=== PATIENT | male | born 1965 | race Caucasian/White ===

== ENCOUNTER 2016-12-05 17:34 | Emergency (ER) | payer MEDICAID, OTHER ==
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
[2016-12-05] MEDS ORDERED: Diltiazem 25 MG/5 ML SDV IVPUSH ONE (18:32)
[2016-12-05 18:33] LABS: CHLORIDE,CL 102 mmol/L (101-111); SODIUM,NA 138 mmol/L (135-145)
[2016-12-05] MEDS ORDERED: cloNIDine 0.1 MG Tab PO ONE (19:20)
[2016-12-05] MEDS ORDERED: Ondansetron 4 MG Tab.DIS PO ONE (19:20)
[2016-12-05] MEDS ORDERED: LORazepam 2 MG/ML Syringe IVPUSH ONE (19:56)
[2016-12-05] MEDS ORDERED: Lisinopril 10 MG Tab ONE (20:20)
[2016-12-05] MEDS ORDERED: Lisinopril 10 MG Tab PO ONE (20:20)
[2016-12-06 00:49] VITALS: BP 158/93
--- NOTE | 2016-12-09 10:51 | EKG ---
12/05/2016- TOI VERNON - EKG per my reading shows sinus rhythm with no acute ST changes. [facility] /[id number]
== END 2016-12-05 20:32 | disposition home or self-care (01) ==
LOC: DL.ED 17:34
DX: I15.9 Secondary hypertension, unspecified (principal); F41.9 Anxiety disorder, unspecified; Z79.899 Other long term (current) drug therapy; Z87.891 Personal history of nicotine dependence
CPT/HCPCS: 36415; 70450; 80053; 85025; 93005; 96374; 96375; 99284; A9270; J2060; J3490

== ENCOUNTER 2017-02-18 02:38 | Emergency (ER) | payer MEDICAID, OTHER ==
[2017-02-18 03:26] VITALS: BP 168/119
[2017-02-18] MEDS ORDERED: LORazepam 2 MG/ML Syringe IVPUSH ONE (03:51)
[2017-02-18] MEDS ORDERED: Diltiazem 25 MG/5 ML SDV IVPUSH ONE ×2 (03:51→04:49)
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
[2017-02-18 04:22] LABS: CHLORIDE,CL 101 mmol/L (101-111); SODIUM,NA 143 mmol/L (135-145)
--- NOTE | 2017-03-05 10:55 | EKG ---
02/18/2017 - TOI VERNON - EKG per my reading shows sinus rhythm with inferior Q-waves with T-wave inversion. [facility] /[id number]
== END 2017-02-18 05:24 ==
LOC: DL.ED 02:38
DX: I15.9 Secondary hypertension, unspecified (principal); F41.9 Anxiety disorder, unspecified; Z79.899 Other long term (current) drug therapy; Z87.891 Personal history of nicotine dependence
CPT/HCPCS: 36415; 80053; 80305; 81001; 82150; 82553; 83690; 84484; 85025; 93005; 93010; 96374; 96375; 96376; 99285; J2060; J3490

== ENCOUNTER 2020-05-19 22:31 | Emergency (ER) | payer MEDICAID ==
[2020-05-19] MEDS ORDERED: Acetaminophen/HYDROcodone 325-10 MG Tab PO ONE (22:32)
[2020-05-19 23:13] VITALS: BP 162/95; PULSE 85
[2020-05-19 23:42] LABS: ANION GAP 14.9 mEq/L (7-13)
[2020-05-19] MEDS ORDERED: HYDROmorphone 0.5 MG/0.5 ML Syringe IVPUSH ONE (23:48)
[2020-05-20] MEDS ORDERED: HYDROmorphone 1 MG/ML Syringe IVPUSH ONE (00:45)
--- NOTE | 2020-05-20 01:03 | CT ---
PROCEDURE INFORMATION: Exam: CT Chest Without Contrast Exam date and time: 05/19/2020 11:59 PM Age: 54 years old Clinical indication: Injury or trauma; Fall; Sprain or strain; Additional info: Fall, severe flank pain TECHNIQUE: Imaging protocol: Computed tomography of the chest without contrast. Radiation optimization: All CT scans at this facility use at least one of these dose optimization techniques: automated exposure control; mA and/or kV adjustment per patient size (includes targeted exams where dose is matched to clinical indication); or iterative reconstruction. COMPARISON: No relevant prior studies available. FINDINGS: Lungs: There is mild nonspecific patchy linear density at right lung base which could be atelectatic, or inflammatory or fibrotic. Left lung is clear Pleural space: There is no evidence of pneumothorax. No pleural effusion. Heart: The heart is not enlarged. There is mild atherosclerotic calcification of the coronary arteries. Aorta: There is no thoracic aortic aneurysm. Lymph nodes: There is no evidence of lymphadenopathy. Bones/joints: There multiple healed bilateral rib fractures. Posterior right rib fracture 8 is incompletely united. The margins of this fracture sclerotic . There is an acute appearing posterior right 11th rib fracture. No other definitive acute fractures of the ribs are seen. Mild compression deformity superior endplate T6 with a large Schmorl's node deformity. Moderate compression deformity inferior endplate T7 also with apparent Schmorl's node deformity. Soft tissues: No acute soft tissue abnormalities are identified. IMPRESSION: 1. There is an acute appearing posterior right 11th rib fracture. No visible pneumothorax. 2. There are multiple bilateral healed rib fractures. No additional convincing acute rib fracture is seen 3. There is mild nonspecific patchy linear density at right lung base which could be atelectatic, or inflammatory or fibrotic. 4. Mild compression deformities T6 and T7 age and etiology indeterminate. If there is pain or tenderness in these areas consider MR. PROCEDURE INFORMATION: Exam: CT Abdomen And Pelvis Without Contrast Exam date and time: 05/19/2020 11:59 PM Age: 54 years old Clinical indication: Injury or trauma; Fall; Sprain or strain; Additional info: Fall, severe flank pain TECHNIQUE: Imaging protocol: Computed tomography of the abdomen and pelvis without contrast. Radiation optimization: All CT scans at this facility use at least one of these dose optimization techniques: automated exposure control; mA and/or kV adjustment per patient size (includes targeted exams where dose is matched to clinical indication); or iterative reconstruction. COMPARISON: No relevant prior studies available. FINDINGS: Liver: The liver is normal. Gallbladder and bile ducts: The gallbladder is normal. There is no evidence of biliary ductal dilation. Pancreas: The pancreas is normal. Spleen: The spleen is enlarged measuring 16 cm. No focal splenic lesion seen. Adrenal glands: The adrenal glands are normal. Kidneys and ureters: Left kidney is atrophic. There is a 3 mm calculus in the mid left kidney. No hydronephrosis on either side. The ureters are normal. Stomach and bowel: There is a moderate amount of colonic content identified. Non-specific/nonobstructive intestinal gas pattern. No specific small bowel or colonic abnormality is identified. The upper GI tract is normal. There is no evidence of colitis/diverticulitis. Appendix: A normal appendix is identified. Intraperitoneal space: No free air. No free fluid. Vasculature: The vasculature demonstrates diffuse mild atherosclerotic calcification. There is no aortic aneurysm. Lymph nodes: There is no adenopathy. Urinary bladder: The bladder is normal. Reproductive: The prostate demonstrates moderate nonspecific enlargement. The seminal vesicles are normal. Bones/joints: There is mild compression of the superior endplate of T12. There is moderate compression of the superior endplate of L1. There is mild compression of the inferior endplate of L2. Otherwise moderate degenerative change throughout the lumbar spine. 13 mm sclerotic lesion left-sided body of L4. Soft tissues: No acute soft tissue abnormalities are identified. IMPRESSION: 1. Partial compression fractures involving T12, L1, L2. Age and etiology indeterminate. If there is pain or tenderness in these areas consider MR. 2. Sclerotic density in the body of L4 may reflect a bone island. A sclerotic metastatic lesion cannot be ruled out entirely. If there is a history of cancer in this patient consider bone scan. 3. No intra-abdominal or pelvic sign of trauma. 4. Splenomegaly 5. Atrophic left kidney. Left renal calculus. No hydronephrosis. 6. Other findings as described
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
[2020-05-20] MEDS ORDERED: Acetaminophen/HYDROcodone 325-10 MG Tab ONE (01:42)
== END 2020-05-20 01:58 | disposition home or self-care (01) ==
LOC: DL.ED 22:31
DX: S52.501A Unspecified fracture of the lower end of right radius, initial encounter for closed fracture (principal); S22.31XA Fracture of one rib, right side, initial encounter for closed fracture; I10 Essential (primary) hypertension; F41.9 Anxiety disorder, unspecified; W01.198A Fall on same level from slipping, tripping and stumbling with subsequent striking against other object, initial encounter
CPT/HCPCS: 29125; 36415; 71250; 73110; 74176; 80053; 80305; 81001; 85025; 96374; 96376; 99284; A9270; J1170

== ENCOUNTER 2020-06-21 09:21 | Emergency (ER) | payer MEDICAID ==
[2020-06-21] MEDS ORDERED: Ondansetron 4 MG/2 ML SDV IVPUSH ONE (09:51)
[2020-06-21] MEDS ORDERED: Acetaminophen 325 MG Tab PO ONE (09:51)
[2020-06-21 10:38] LABS: ANION GAP 11.4 mEq/L (7-13)
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
[2020-06-21] MEDS ORDERED: Iopamidol 612 MG/ML 100 ML Bottle IVPUSH ONE (11:19)
--- NOTE | 2020-06-21 12:02 | CT ---
PROCEDURE INFORMATION: Exam: CT Abdomen And Pelvis With Contrast Exam date and time: 06/21/2020 11:35 AM Age: 54 years old Clinical indication: Abdominal pain; Additional info: Rlq pain with rebound tenderness; Fever TECHNIQUE: Imaging protocol: Computed tomography of the abdomen and pelvis with intravenous contrast. Radiation optimization: All CT scans at this facility use at least one of these dose optimization techniques: automated exposure control; mA and/or kV adjustment per patient size (includes targeted exams where dose is matched to clinical indication); or iterative reconstruction. Contrast material: [id number]; Contrast volume: 75 ml; Contrast route: INTRAVENOUS (IV); COMPARISON: CT Chest Abdomen Pelvis wo Cont 05/19/2020 11:59 PM FINDINGS: Lungs: Patchy bilateral areas of ground-glass attenuation and interstitial thickening in the visualized lower lungs. Pleural space: Calcified pleural plaques posterior right lung base. Liver: Normal. No mass. Gallbladder and bile ducts: Normal. No calcified stones. No ductal dilation. Pancreas: Normal. No ductal dilation. Spleen: Splenomegaly. Adrenal glands: Normal. No mass. Kidneys and ureters: Atrophic left kidney. Stable 6 mm stone lower pole left kidney. Cortical scarring right kidney. Stomach and bowel: Large amount of stool in the right side of the colon Appendix: No evidence of appendicitis. Intraperitoneal space: Unremarkable. No free air. No significant fluid collection. Vasculature: Vascular calcifications including coronary artery calcifications. Lymph nodes: Unremarkable. No enlarged lymph nodes. Urinary bladder: Unremarkable as visualized. Reproductive: Prostatic enlargement and prostatic calcifications. Bones/joints: Chronic benign compression deformities of T7 and T12 through L2. Degenerate arthritis in the spine and pelvis. Stable focal sclerotic lesion in left side of L4 vertebral body. Stable multiple right rib fractures. Soft tissues: Unremarkable. IMPRESSION: 1. Large amount of stool in the right side of the colon. 2. Splenomegaly. 3. Atrophic left kidney with 6 mm nonobstructing left kidney stone. 4. Ground-glass infiltrates in both lung bases. Commonly reported imaging features of COVID-19 pneumonia are present. Other processes such as influenza pneumonia and organizing pneumonia, as can be seen with drug toxicity and connective tissue disease, can cause a similar imaging pattern. (Reference: Chevy) References: Chevy Stark et al., Radiological Society of [place] Expert Consensus Statement on Reporting Chest CT Findings Related to COVID-19. Endorsed by the Society of Thoracic Radiology, the [place] [employer], and RSNA. Published October 04, 2019.
[2020-06-21] MEDS ORDERED: cefTRIAXone 1 GM in Sodium Chloride 0.9% 50 ML IV ONE (12:32)
[2020-06-21 12:58] VITALS: BP 143/76; PULSE 72
== END 2020-06-21 13:41 | disposition home or self-care (01) ==
LOC: DL.ED 09:21
DX: U07.1 COVID-19 (principal); J12.89 Other viral pneumonia; K59.09 Other constipation; I12.9 Hypertensive chronic kidney disease with stage 1 through stage 4 chronic kidney disease, or unspecified chronic kidney disease; N18.9 Chronic kidney disease, unspecified; F41.9 Anxiety disorder, unspecified; Z79.899 Other long term (current) drug therapy; Z87.891 Personal history of nicotine dependence
CPT/HCPCS: 36415; 74177; 80053; 80305-QW; 80307; 81001; 82150; 83605; 83690; 85025; 87040; 96365; 96375; 99284-25; A9270-GY; J0696; J2405; J7050; Q9967

== ENCOUNTER 2020-06-22 14:44 | Inpatient (IN) | payer MEDICAID ==
[2020-06-22 16:31] LABS: ANION GAP 10.2 mEq/L (7-13); CHLORIDE,CL 99 mmol/L (98-107); SODIUM,NA 133 mmol/L (136-145)
--- NOTE | 2020-06-22 17:40 | CT ---
PROCEDURE INFORMATION: Exam: CT Chest Without Contrast; Diagnostic Exam date and time: 06/22/2020 5:17 PM Age: 54 years old Clinical indication: Shortness of breath; Additional info: Covid +, ddimer 790 TECHNIQUE: Imaging protocol: Diagnostic computed tomography of the chest without contrast. Radiation optimization: All CT scans at this facility use at least one of these dose optimization techniques: automated exposure control; mA and/or kV adjustment per patient size (includes targeted exams where dose is matched to clinical indication); or iterative reconstruction. COMPARISON: CT Chest Abdomen Pelvis wo Cont 05/19/2020 11:59 PM FINDINGS: Lungs: Extensive bilateral ground-glass and non ground-glass airspace opacities suspicious for COVID infection. Pleural space: Unremarkable. No pneumothorax. No pleural effusion. Heart: Unremarkable. No cardiomegaly. No pericardial effusion. Aorta: Unremarkable. No aortic aneurysm. Lymph nodes: Unremarkable. No enlarged lymph nodes. Bones/joints: Healed fractures of the left 2nd 3rd and 4th ribs. Healed fracture of the right 8th posterior rib. Nonunited fracture of the posterior 9th rib. Acute nondisplaced fracture of the posterior right 11th rib. Soft tissues: Splenomegaly. IMPRESSION: 1. Bilateral ground-glass consolidation suspicious for COVID-19 infection. 2. Acute fracture of the right posterior 11th rib. 3. Splenomegaly.
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
[2020-06-22] MEDS ORDERED: Ondansetron 4 MG Tab.DIS PO PRN (19:08)
[2020-06-22] MEDS ORDERED: Docusate Sodium 100 MG Cap PO PRN (19:08)
[2020-06-22] MEDS ORDERED: Sodium Chloride 0.9% 1,000 ML IV SCH (19:15)
--- NOTE | 2020-06-22 19:47 | HP ---
CHIEF COMPLAINT: Shortness of breath. HISTORY OF PRESENT ILLNESS: The patient is a 54-year-old male with past medical history of coronary artery disease, hypertension, chronic kidney disease, who was admitted through the emergency room because of increasing shortness of breath. The patient's symptoms started about 9 days ago, and he tested positive for COVID 5 days ago. He had some shortness of breath, which has increased or worsened recently. He also complained of some chest discomfort with coughing, and also complained of fever and episodes of diarrhea. The patient denies any dysuria, headache, abdominal pain, or any other associated symptoms. Because of this, he was seen in the emergency room and his oxygen saturation on room air was in the 70s which improved with 5 L of nasal cannula to 94%. A patient had a CAT scan of the chest which showed ground-glass appearance compatible with COVID pneumonia, and because of this he was then admitted for further evaluation and management. PAST MEDICAL HISTORY: As in HPI. FAMILY HISTORY: Noncontributory. HOME MEDICATIONS: Lisinopril 20 mg daily, Voltaren, hydrochlorothiazide, lorazepam 0.5 mg p.o. b.i.d., losartan 50 mg daily, Zofran and dexamethasone 6 mg p.o. daily. ALLERGIES: No known drug allergies. REVIEW OF SYSTEMS: As in HPI. The rest of the review of systems is negative. PHYSICAL EXAMINATION: General: The patient is alert and oriented, not in any acute distress. Vital Signs: Blood pressure is 111/67, pulse of 89, respiration of 29, temperature of 100.7, saturation is 89%. SHEENT: Normocephalic. There are pink palpebral conjunctivae. Sclerae anicteric. Neck: No JVD. No lymphadenopathy. Heart: Regular rate and rhythm. No gallops. No rubs. Lungs: Diminished breath sounds on both bases, but no significant crackles. No wheezing. Abdomen: Protuberant, moderately obese, soft, nontender. Bowel sounds positive. Extremities: Negative for any pedal edema. LABORATORY WORKUP: WBC is 13.2, hemoglobin is 14.3, hematocrit is 42.9, platelets 440, neutrophils 87, bands 2. D-dimer is 789. Comp panel: Sodium is 133, BUN of 25, creatinine is 1.95, glucose is 159, calcium is 8.2, total bilirubin of 1.2, AST is 46, ALT is 128, LDH is 232. Troponin is less than 0.017. C-reactive protein is 28.4. BNP is 111. ADMITTING DIAGNOSES: 1. COVID pneumonia. 2. Hypoxemia. 3. Coronary artery disease. 4. Hypertension. 5. Chronic kidney disease. 6. Anxiety. TREATMENT PLAN: The patient is going to be admitted to [facility]. He will be empirically started on IV antibiotics with Rocephin and Zithromax. We will give him dexamethasone. I have also discussed with the patient about remdesivir, and we will put him on DVT prophylaxis and the rest of the management as necessary. Patient is full code. I spoke with the patient and provided information about remdesivir treatment as being under emergency use authorization and not fully FDA approved or reviewed. I discussed potential side effects including liver abnormalities and also discussed other potential treatment options that are currently not FDA approved to treat COVID-19. The patient gives permission for remdesivir. [facility] /[id number]
[2020-06-22] MEDS ORDERED: Water For Injection, Sterile 40 ML ONE (20:34)
[2020-06-22] MEDS: Dexamethasone 4 MG/ML SDV IVPUSH SCH (21:25)
[2020-06-22] MEDS: LORazepam 0.5 MG Tab PO SCH (21:25)
[2020-06-22] MEDS: Albuterol 6.7 GM Inhaler INH SCH (21:27)
[2020-06-22] MEDS: Enoxaparin 40 MG/0.4 ML Syringe SUBCUT SCH (21:28)
[2020-06-22] MEDS: Mometasone Furoate Powder 220 MCG/Puff 14 Dose Inhaler INH SCH ×2 (21:47→21:55)
[2020-06-22] MEDS: cefTRIAXone 1 GM in Sodium Chloride 0.9% 50 ML IV SCH (22:29)
[2020-06-22] MEDS: oxyCODONE 5 MG Tab PO PRN (23:00)
[2020-06-22] MEDS: Azithromycin 500 MG in Sodium Chloride 0.9% 250 ML IV SCH (23:05)
[2020-06-23] MEDS: Mometasone Furoate Powder 220 MCG/Puff 14 Dose Inhaler INH SCH ×3 (05:50→18:53)
[2020-06-23] MEDS: oxyCODONE 5 MG Tab PO PRN ×2 (07:59→19:52)
[2020-06-23] MEDS: LORazepam 0.5 MG Tab PO SCH ×2 (08:01→20:02)
[2020-06-23] MEDS: Albuterol 6.7 GM Inhaler INH SCH ×4 (09:00→20:09)
[2020-06-23] MEDS ORDERED: Lisinopril 20 MG Tab PO SCH (09:00)
--- NOTE | 2020-06-23 10:04 | PN ---
DATE: 06/23/2020 SUBJECTIVE: The patient this morning is feeling slightly better, although the patient is still requiring 15 L of oxygen to keep his saturation above 90%, but the patient denies any worsening of shortness of breath and denies any chest pain, fever, chills, abdominal pain, nor any other complaints. LABORATORY DATA: Lab workup this morning, CBC: WBC is 13.9, hemoglobin is 14.1, hematocrit is 42.8, platelet is 501. Chem-6: Sodium is 135, BUN is 31, creatinine is 1.7. Hepatic function panel: AST is 29 (improvement), ALT of 101. LDH is 139. OBJECTIVE: Vital Signs: Blood pressure is 118/68, pulse of 67, respirations 22, temperature of 98.6, saturation is 90% on 15 L of oxygen. Heart: Regular rate and rhythm. Normal S1 and S2. No gallops. No rubs. Lungs: Diminished breath sounds bilaterally with coarse breath sounds. No wheezing. Abdomen: Moderately obese, but soft, nontender. Bowel sounds positive. Extremities: Negative for any pedal edema. No calf tenderness. PLAN: We will continue with his present management and we will discontinue the lisinopril as the patient is taking losartan 50 mg daily. I have also discussed with the patient regarding the EUA of convalescent plasma and the patient agreed with this and we will give him 2 units of fresh frozen convalescent plasma. [facility] /[id number]
[2020-06-23] MEDS: Benzonatate 100 MG Cap PO PRN (10:51)
[2020-06-23] MEDS: Losartan 50 MG Tab PO SCH (10:51)
[2020-06-23] MEDS: amLODIPine 5 MG Tab PO SCH (10:51)
[2020-06-23] MEDS: Aspirin 81 MG Tab.Chew PO SCH (13:00)
[2020-06-23] MEDS: Dexamethasone 4 MG/ML SDV IVPUSH SCH (19:42)
[2020-06-23] MEDS: cefTRIAXone 1 GM in Sodium Chloride 0.9% 50 ML IV SCH (19:46)
[2020-06-23] MEDS: Enoxaparin 40 MG/0.4 ML Syringe SUBCUT SCH (20:07)
[2020-06-23] MEDS: REMDESIVIR 100 MG in Sodium Chloride 0.9% 100 ML IV SCH (20:12)
[2020-06-23] MEDS ORDERED: LORazepam 1 MG Tab PO ONE (20:17)
[2020-06-23] MEDS: Azithromycin 500 MG in Sodium Chloride 0.9% 250 ML IV SCH (21:06)
[2020-06-23] MEDS: Sodium Chloride 0.9% 10 ML Syringe FLUSH PRN ×3 (21:07→21:11)
[2020-06-24] MEDS: Mometasone Furoate Powder 220 MCG/Puff 14 Dose Inhaler INH SCH ×3 (05:44→17:45)
[2020-06-24 06:35] LABS: ANION GAP 14.1 mEq/L (7-13)
[2020-06-24] MEDS: Aspirin 81 MG Tab.Chew PO SCH (08:44)
[2020-06-24] MEDS: Benzonatate 100 MG Cap PO PRN (08:44)
[2020-06-24] MEDS: amLODIPine 5 MG Tab PO SCH (08:44)
[2020-06-24] MEDS: LORazepam 0.5 MG Tab PO SCH (08:44)
[2020-06-24] MEDS: Losartan 50 MG Tab PO SCH (08:44)
[2020-06-24] MEDS: Albuterol 6.7 GM Inhaler INH SCH ×4 (08:46→20:46)
--- NOTE | 2020-06-24 14:09 | PN ---
DATE: 06/24/2020 SUBJECTIVE: The patient yesterday afternoon complained of some chest pain and we did an EKG. EKG did not show any acute changes and total of 2 sets of troponin was done and this came back within normal limits. The chest pain was felt to be from his anxiety. He was given some lorazepam extra dose yesterday and actually felt albeit better. This morning, the patient is still complaining of some shortness of breath and still anxious, but denies any fever, chills, and denies any more chest pain, abdominal pain, nor any other complaints. LABORATORY DATA: Lab workup this morning. CBC: WBC 18, hemoglobin is 14.8, hematocrit is 44.9, platelet is 600. Chem-6 and comp panel remarkable for anion gap of 14.1, BUN of 39, creatinine of 1.6, glucose is 207, ALT of 90, AST of 30. Total protein of 6.1, albumin is 2.4. OBJECTIVE: Vital Signs: Blood pressure is 126/70, pulse of 64, respirations of 18, temperature of 98.4, saturation is 93% on 40% flow rate of high-flow nasal cannula and FiO2 of 65. Heart: Regular rate and rhythm. No gallops. No rubs. Lungs: Has diminished breath sounds on both bases but no significant crackles. No wheezing. Breath sounds equal. Abdomen: Moderately obese, soft, nontender. Bowel sounds positive. Extremities: Negative for any pedal edema. No calf tenderness. MEDICATIONS: Reviewed. PLAN: He will be getting the convalescent plasma today. We will continue with his IV azithromycin and some IV ceftriaxone and IV dexamethasone and Remdesivir. I am going to increase his lorazepam to 1 mg b.i.d. because of his anxiety. [facility] /[id number]
[2020-06-24] MEDS: oxyCODONE 5 MG Tab PO PRN ×2 (14:20→20:44)
[2020-06-24] MEDS: Sodium Chloride 0.9% 10 ML Syringe FLUSH PRN ×5 (19:20→21:14)
[2020-06-24] MEDS: Dexamethasone 4 MG/ML SDV IVPUSH SCH (19:20)
[2020-06-24] MEDS: cefTRIAXone 1 GM in Sodium Chloride 0.9% 50 ML IV SCH (19:24)
[2020-06-24] MEDS: REMDESIVIR 100 MG in Sodium Chloride 0.9% 100 ML IV SCH (20:06)
[2020-06-24] MEDS: LORazepam 1 MG Tab PO SCH (20:44)
[2020-06-24] MEDS: Enoxaparin 40 MG/0.4 ML Syringe SUBCUT SCH (20:47)
[2020-06-24] MEDS: Azithromycin 500 MG in Sodium Chloride 0.9% 250 ML IV SCH (21:17)
[2020-06-25] MEDS: Mometasone Furoate Powder 220 MCG/Puff 14 Dose Inhaler INH SCH ×3 (05:58→18:04)
[2020-06-25] MEDS: oxyCODONE 5 MG Tab PO PRN (06:07)
[2020-06-25] MEDS: Benzonatate 100 MG Cap PO PRN ×2 (09:20→15:43)
[2020-06-25] MEDS: LORazepam 1 MG Tab PO SCH ×2 (09:21→21:25)
[2020-06-25] MEDS: Losartan 50 MG Tab PO SCH (09:21)
[2020-06-25] MEDS: amLODIPine 5 MG Tab PO SCH (09:21)
[2020-06-25] MEDS: Aspirin 81 MG Tab.Chew PO SCH (09:21)
[2020-06-25] MEDS: Albuterol 6.7 GM Inhaler INH SCH ×4 (09:22→21:23)
--- NOTE | 2020-06-25 12:40 | PN ---
DATE: 06/25/2020 SUBJECTIVE: The patient yesterday was complaining of some vivid dreams, but today he is feeling little bit better. Denies any worsening of shortness of breath. Denies any chest pain, abdominal pain, or any other significant complaints. LABORATORY DATA: Lab workup this morning; WBC is 16.2, hemoglobin is 14.3, hematocrit is 43.3, platelets 587. Comp panel: BUN is 39, creatinine is 1.64, glucose is 203, and ALT is 102. The rest of the comp panel unremarkable. OBJECTIVE: Vital Signs: Blood pressure is 134/64, pulse of 64, respirations 20, temperature of 97.6, saturation is 94% on FiO2 of 75 with 39 flow rate. Heart: Regular rate and rhythm. Normal S1 and S2. No gallops, no rubs. Lungs: Diminished breath sounds on both bases, but no crackles, no wheezing. Abdomen: Soft, nontender, bowel sounds positive. Extremities: Negative for any pedal edema. No calf tenderness. MEDICATIONS: Reviewed. PLAN: We will continue with his present management and that is continue with IV remdesivir and IV dexamethasone and IV azithromycin and ceftriaxone, and we will continue with the rest of his other medications. [facility] /[id number]
[2020-06-25] MEDS: Acetaminophen 325 MG Tab PO PRN (15:42)
[2020-06-25] MEDS: Sodium Chloride 0.9% 10 ML Syringe FLUSH PRN ×5 (19:20→21:13)
[2020-06-25] MEDS: Dexamethasone 4 MG/ML SDV IVPUSH SCH (19:20)
[2020-06-25] MEDS: cefTRIAXone 1 GM in Sodium Chloride 0.9% 50 ML IV SCH (19:23)
[2020-06-25] MEDS: REMDESIVIR 100 MG in Sodium Chloride 0.9% 100 ML IV SCH (19:57)
[2020-06-25] MEDS: Azithromycin 500 MG in Sodium Chloride 0.9% 250 ML IV SCH (21:15)
[2020-06-25] MEDS: Enoxaparin 40 MG/0.4 ML Syringe SUBCUT SCH (21:24)
[2020-06-26] MEDS: Mometasone Furoate Powder 220 MCG/Puff 14 Dose Inhaler INH SCH ×3 (05:56→17:19)
[2020-06-26] MEDS: amLODIPine 5 MG Tab PO SCH (08:51)
[2020-06-26] MEDS: LORazepam 1 MG Tab PO SCH ×2 (08:52→21:30)
[2020-06-26] MEDS: Aspirin 81 MG Tab.Chew PO SCH (08:52)
[2020-06-26] MEDS: Losartan 50 MG Tab PO SCH (08:52)
[2020-06-26] MEDS: Albuterol 6.7 GM Inhaler INH SCH ×4 (08:54→21:34)
--- NOTE | 2020-06-26 11:17 | PCM.PN ---
- General Info Date of Service: 06/26/20 Subjective Update: Patient has no new complaints today. Has been having hiccups Still has some shortness of breath - Review of Systems General: Reports: Weakness, Malaise Pulmonary: Reports: Shortness of Breath, Cough Cardiovascular: Reports: No Symptoms Gastrointestinal: Reports: No Symptoms Skin: Reports: No Symptoms - Patient Data Vitals - Most Recent: Last Vital Signs Temp 36.2 C 06/26/20 08:00 Pulse 64 06/26/20 08:00 Resp 20 06/26/20 08:00 BP 115/67 06/26/20 08:52 Pulse Ox 98 06/26/20 08:00 Weight - Most Recent: 95.254 kg I&O - Last 24 Hours: Intake & Output 06/25/20 06/26/20 06/26/20 22:59 06:59 14:59 Intake Total 450 350 470 Output Total 700 1350 Balance -250 -1000 470 Lab Results Last 24 Hours: Laboratory Results - last 24 hr 06/26/20 Range/Units 06:30 Total Bilirubin 0.3 (0.2-1.0) mg/dL Direct Bilirubin 0.2 (0.0-0.2) mg/dL Indirect Bilirubin 0.1 AST 24 (15-37) U/L ALT 103 H (16-63) U/L Alkaline Phosphatase 106 (46-116) U/L Total Protein 6.3 L (6.4-8.2) g/dL Albumin 2.3 L (3.4-5.0) g/dL Globulin 4.0 Albumin/Globulin Ratio 0.58 Kenny Results Last 24 Hours: Microbiology 06/22/20 16:02 Aerobic Blood Culture - Preliminary Blood - Arm, Right NO GROWTH AFTER 3 DAYS Anaerobic Blood Culture - Preliminary NO GROWTH AFTER 3 DAYS 06/22/20 15:59 Aerobic Blood Culture - Preliminary Blood - Arm, Left NO GROWTH AFTER 3 DAYS Anaerobic Blood Culture - Preliminary NO GROWTH AFTER 3 DAYS Med Orders - Current: Current Medications Acetaminophen (Tylenol) 650 mg PO Q4H PRN PRN Reason: Pain (Mild 1-3)/fever Last Admin: 06/25/20 15:42 Dose: 650 mg Documented by: Albuterol (Proventil Hfa) 1 - 2 gm INH QID TRISH Last Admin: 06/26/20 08:54 Dose: 2 puff Documented by: Amlodipine Besylate (Norvasc) 10 mg PO DAILY [facility] Last Admin: 06/26/20 08:51 Dose: 10 mg Documented by: Aspirin (Aspirin) 81 mg PO DAILY [facility] Last Admin: 06/26/20 08:52 Dose: 81 mg Documented by: Benzonatate (Tessalon Perles) 100 mg PO TID PRN PRN Reason: Cough Last Admin: 06/25/20 15:43 Dose: 100 mg Documented by: Dexamethasone (Decadron) 6 mg IVPUSH DAILY@1999 [facility] Stop: 07/01/20 20:01 Last Admin: 06/25/20 19:20 Dose: 6 mg Documented by: Docusate Sodium (Colace) 100 mg PO BID PRN PRN Reason: Constipation Enoxaparin Sodium (Lovenox) 40 mg SUBCUT BEDTIME [facility] Last Admin: 06/25/20 21:24 Dose: 40 mg Documented by: Ceftriaxone Sodium 1 gm/ (Sodium Chloride) 50 mls @ 100 mls/hr IV Q24H [facility] Last Infusion: 06/25/20 19:55 Dose: Infused Documented by: Azithromycin 500 mg/ Sodium (Chloride) 250 mls @ 250 mls/hr IV Q24H [facility] Last Infusion: 06/25/20 23:55 Dose: Infused Documented by: Remdesivir 100 mg/ Sodium (Chloride) 100 mls @ 100 mls/hr IV Q24H [facility] Stop: 06/26/20 20:59 Last Infusion: 06/25/20 21:14 Dose: Infused Documented by: Lorazepam (Ativan) 1 mg PO BID [facility] Last Admin: 06/26/20 08:52 Dose: 1 mg Documented by: Losartan Potassium (Cozaar) 50 mg PO DAILY [facility] Last Admin: 06/26/20 08:52 Dose: 50 mg Documented by: Mometasone Furoate (Asmanex 220 Mcg) 2 puff INH BIDRT [facility] Last Admin: 06/26/20 06:36 Dose: Not Given Documented by: Ondansetron HCl (Zofran Odt) 4 mg PO Q4H PRN PRN Reason: nausea, able to take PO Last Admin: 06/23/20 10:51 Dose: 4 mg Documented by: Oxycodone HCl (Oxycodone) 5 mg PO Q4H PRN PRN Reason: Pain (moderate 4-6) Last Admin: 06/25/20 06:07 Dose: 5 mg Documented by: Sodium Chloride (Saline Flush) 10 ml FLUSH ASDIRECTED PRN PRN Reason: IV Use Last Admin: 06/25/20 21:13 Dose: 10 ml Documented by: Discontinued Medications Sodium Chloride (Normal Saline) 1,000 mls @ 75 mls/hr IV ASDIRECTED [facility] Last Infusion: 06/23/20 10:37 Dose: 75 mls/hr Documented by: Remdesivir 200 mg/ Sodium (Chloride) 210 mls @ 210 mls/hr IV ONETIME ONE Stop: 06/22/20 20:59 Last Infusion: 06/22/20 22:28 Dose: Infused Documented by: Sterile Water (Sterile Water For Injection) Confirm Administered Dose 40 mls @ as directed .ROUTE .STK-MED ONE Stop: 06/22/20 20:35 Last Admin: 06/22/20 21:25 Dose: 210 mls/hr Documented by: Lisinopril (Prinivil) 20 mg PO DAILY [facility] Last Admin: 06/23/20 08:00 Dose: 20 mg Documented by: Lorazepam (Ativan) 0.5 mg PO BID [facility] Last Admin: 06/24/20 08:44 Dose: 0.5 mg Documented by: Lorazepam (Ativan) 1 mg PO ONETIME ONE Stop: 06/23/20 20:18 Last Admin: 06/23/20 21:02 Dose: 1 mg Documented by: - Exam Quality Assessment: Supplemental Oxygen General: Alert, Oriented, Cooperative Neck: Supple Lungs: Decreased Breath Sounds GI/Abdominal Exam: Normal Bowel Sounds, Soft, Non-Tender, No Organomegaly, No Distention, No Abnormal Bruit, No Mass, Pelvis Stable Sepsis Event Note - Evaluation Sepsis Screening Result: No Definite Risk - Focused Exam Vital Signs: Vital Signs Temp Pulse Pulse Resp BP BP BP 06/26/20 08:52 115/67 06/26/20 08:51 115/67 06/26/20 08:00 36.2 C 64 20 115/67 06/26/20 03:19 36.1 C 71 20 150/73 H 06/25/20 23:58 36.8 C 71 20 129/70 Pulse Ox 06/26/20 08:52 06/26/20 08:51 06/26/20 08:00 98 06/26/20 03:19 93 L 06/25/20 23:58 93 L - Problem List Review Problem List Initiated/Reviewed/Updated: Yes - Plan Plan:: #. Acute hypoxemic respiratory failure This is secondary to COVID-19 pneumonia #. Chronic kidney disease Serum creatinine is at 1.5 #. Coronary artery disease Status post previous coronary stent placement #. COVID-19 pneumonia Procalcitonin level is elevated. #. Hiccups Try patient on chlorpromazine for symptomatic management Plan: Continue current antibiotics Send sample for procalcitonin level Obtain basic metabolic panel Wean down oxygen as tolerated Obtain repeat complete blood count.
[2020-06-26] MEDS ORDERED: Aluminum Hydroxide/Magnesium Hydroxide/Simethicone Susp 30 ML Cup PO PRN (18:33)
[2020-06-26] MEDS: Sodium Chloride 0.9% 10 ML Syringe FLUSH PRN ×6 (20:20→23:09)
[2020-06-26] MEDS: cefTRIAXone 1 GM in Sodium Chloride 0.9% 50 ML IV SCH (20:20)
[2020-06-26] MEDS: Dexamethasone 4 MG/ML SDV IVPUSH SCH (21:17)
[2020-06-26] MEDS: REMDESIVIR 100 MG in Sodium Chloride 0.9% 100 ML IV SCH (21:25)
[2020-06-26] MEDS: Enoxaparin 40 MG/0.4 ML Syringe SUBCUT SCH (21:31)
[2020-06-26] MEDS: Azithromycin 500 MG in Sodium Chloride 0.9% 250 ML IV SCH (23:09)
[2020-06-27] MEDS: Sodium Chloride 0.9% 10 ML Syringe FLUSH PRN ×5 (00:38→22:46)
[2020-06-27] MEDS: Pantoprazole 40 MG Tab.CR PO SCH (05:09)
[2020-06-27 07:06] LABS: ANION GAP 9.2 mEq/L (7-13)
[2020-06-27] MEDS: LORazepam 1 MG Tab PO SCH ×2 (10:11→20:42)
[2020-06-27] MEDS: Mometasone Furoate Powder 220 MCG/Puff 14 Dose Inhaler INH SCH ×2 (10:11→17:30)
[2020-06-27] MEDS: Aspirin 81 MG Tab.Chew PO SCH (10:12)
[2020-06-27] MEDS: amLODIPine 5 MG Tab PO SCH (10:12)
[2020-06-27] MEDS: Albuterol 6.7 GM Inhaler INH SCH ×4 (10:17→20:48)
[2020-06-27] MEDS: Losartan 50 MG Tab PO SCH (10:17)
[2020-06-27] MEDS ORDERED: 50% Dextrose in Water 50 ML Syringe IV PRN (11:28)
[2020-06-27] MEDS ORDERED: Glucagon,Human Recombinant 1 MG Vial IM PRN (11:28)
--- NOTE | 2020-06-27 11:31 | PCM.PN ---
- General Info Date of Service: 06/27/20 Subjective Update: Patient offers no new complaint today Still has generalized weakness Appetite is better Continues to require supplemental oxygen at 5 L/min. - Review of Systems General: Reports: Weakness Pulmonary: Reports: Shortness of Breath, Cough Cardiovascular: Reports: No Symptoms Gastrointestinal: Reports: No Symptoms Musculoskeletal: Reports: No Symptoms - Patient Data Vitals - Most Recent: Last Vital Signs Temp 36.7 C 06/27/20 10:12 Pulse 70 06/27/20 10:12 Resp 18 06/27/20 10:12 BP 124/79 06/27/20 10:12 Pulse Ox 94 L 06/27/20 10:12 Weight - Most Recent: 95.254 kg I&O - Last 24 Hours: Intake & Output 06/26/20 06/27/20 06/27/20 22:59 06:59 14:59 Intake Total 692 939 Output Total 1500 2270 Balance -808 -1331 Lab Results Last 24 Hours: Laboratory Results - last 24 hr 06/27/20 06/27/20 06/27/20 Range/Units 06:35 06:35 09:42 WBC 18.1 H (5.0-10.0) 10^3/uL RBC 5.29 (4.6-6.2) 10^6/uL Hgb 15.5 (14.0-18.0) g/dL Hct 46.3 (40.0-54.0) % MCV 87.5 (80-100) fL MCH 29.3 (27.0-34.0) pg MCHC 33.5 (33.0-35.0) g/dL Plt Count 612 H (150-450) 10^3/uL Sodium 134 L (136-145) mmol/L Potassium 5.2 H 4.8 (3.5-5.1) mmol/L Chloride 101 (98-107) mmol/L Carbon Dioxide 29 (21-32) mmol/L Anion Gap 9.2 (7-13) mEq/L BUN 36 H (7-18) mg/dL Creatinine 1.64 H (0.70-1.30) mg/dL Est Cr Clr Drug Dosing 53.17 mL/min Estimated GFR (MDRD) 44 Glucose 256 H (74-99) mg/dL Calcium 8.6 (8.5-10.1) mg/dL B-Natriuretic Peptide 90 (0-100) pg/ml Kenny Results Last 24 Hours: Microbiology 06/22/20 16:02 Aerobic Blood Culture - Preliminary Blood - Arm, Right NO GROWTH AFTER 4 DAYS Anaerobic Blood Culture - Preliminary NO GROWTH AFTER 4 DAYS 06/22/20 15:59 Aerobic Blood Culture - Preliminary Blood - Arm, Left NO GROWTH AFTER 4 DAYS Anaerobic Blood Culture - Preliminary NO GROWTH AFTER 4 DAYS Med Orders - Current: Current Medications Acetaminophen (Tylenol) 650 mg PO Q4H PRN PRN Reason: Pain (Mild 1-3)/fever Last Admin: 06/25/20 15:42 Dose: 650 mg Documented by: Al Hydroxide/Mg Hydroxide (Mag-Al Plus) 30 ml PO Q4H PRN PRN Reason: Heartburn Albuterol (Proventil Hfa) 1 - 2 gm INH QID [facility] Last Admin: 06/27/20 10:17 Dose: 2 puff Documented by: Amlodipine Besylate (Norvasc) 10 mg PO DAILY [facility] Last Admin: 06/27/20 10:12 Dose: 10 mg Documented by: Aspirin (Aspirin) 81 mg PO DAILY [facility] Last Admin: 06/27/20 10:12 Dose: 81 mg Documented by: Benzonatate (Tessalon Perles) 100 mg PO TID PRN PRN Reason: Cough Last Admin: 06/25/20 15:43 Dose: 100 mg Documented by: Dexamethasone (Decadron) 6 mg IVPUSH DAILY@1999 [facility] Stop: 07/01/20 20:01 Last Admin: 06/26/20 21:17 Dose: 6 mg Documented by: Docusate Sodium (Colace) 100 mg PO BID PRN PRN Reason: Constipation Enoxaparin Sodium (Lovenox) 40 mg SUBCUT BEDTIME [facility] Last Admin: 06/26/20 21:31 Dose: 40 mg Documented by: Ceftriaxone Sodium 1 gm/ (Sodium Chloride) 50 mls @ 100 mls/hr IV Q24H [facility] Last Infusion: 06/26/20 21:11 Dose: Infused Documented by: Azithromycin 500 mg/ Sodium (Chloride) 250 mls @ 250 mls/hr IV Q24H [facility] Last Infusion: 06/27/20 00:36 Dose: Infused Documented by: Lorazepam (Ativan) 1 mg PO BID [facility] Last Admin: 12/17/20 10:11 Dose: 1 mg Documented by: Losartan Potassium (Cozaar) 50 mg PO DAILY [facility] Last Admin: 06/27/20 10:17 Dose: Not Given Documented by: Mometasone Furoate (Asmanex 220 Mcg) 2 puff INH BIDRT [facility] Last Admin: 06/27/20 10:11 Dose: 2 puff Documented by: Ondansetron HCl (Zofran Odt) 4 mg PO Q4H PRN PRN Reason: nausea, able to take PO Last Admin: 06/23/20 10:51 Dose: 4 mg Documented by: Oxycodone HCl (Oxycodone) 5 mg PO Q4H PRN PRN Reason: Pain (moderate 4-6) Last Admin: 06/25/20 06:07 Dose: 5 mg Documented by: Pantoprazole Sodium (Protonix) 40 mg PO ACBREAKFAST [facility] Last Admin: 06/27/20 05:09 Dose: 40 mg Documented by: Sodium Chloride (Saline Flush) 10 ml FLUSH ASDIRECTED PRN PRN Reason: IV Use Last Admin: 06/27/20 00:38 Dose: 10 ml Documented by: Discontinued Medications Sodium Chloride (Normal Saline) 1,000 mls @ 75 mls/hr IV ASDIRECTED [facility] Last Infusion: 06/23/20 10:37 Dose: 75 mls/hr Documented by: Remdesivir 200 mg/ Sodium (Chloride) 210 mls @ 210 mls/hr IV ONETIME ONE Stop: 06/22/20 20:59 Last Infusion: 06/22/20 22:28 Dose: Infused Documented by: Remdesivir 100 mg/ Sodium (Chloride) 100 mls @ 100 mls/hr IV Q24H [facility] Stop: 06/26/20 20:59 Last Infusion: 06/26/20 23:06 Dose: Infused Documented by: Sterile Water (Sterile Water For Injection) Confirm Administered Dose 40 mls @ as directed .ROUTE .STK-MED ONE Stop: 06/22/20 20:35 Last Admin: 06/22/20 21:25 Dose: 210 mls/hr Documented by: Lisinopril (Prinivil) 20 mg PO DAILY [facility] Last Admin: 06/23/20 08:00 Dose: 20 mg Documented by: Lorazepam (Ativan) 0.5 mg PO BID [facility] Last Admin: 06/24/20 08:44 Dose: 0.5 mg Documented by: Lorazepam (Ativan) 1 mg PO ONETIME ONE Stop: 06/23/20 20:18 Last Admin: 06/23/20 21:02 Dose: 1 mg Documented by: - Exam Quality Assessment: Supplemental Oxygen General: Alert, Oriented, Cooperative Neck: Supple Lungs: Decreased Breath Sounds Cardiovascular: Regular Rate, Regular Rhythm GI/Abdominal Exam: Normal Bowel Sounds, Non-Tender Sepsis Event Note - Evaluation Sepsis Screening Result: No Definite Risk - Focused Exam Vital Signs: Vital Signs Temp Pulse Resp BP BP Pulse Ox 06/27/20 10:12 36.7 C 70 18 124/79 124/79 94 L 06/27/20 05:30 93 L 06/27/20 05:20 35.9 C L 56 L 20 134/79 96 06/27/20 00:38 36.3 C 63 20 129/72 90 L - Problem List Review Problem List Initiated/Reviewed/Updated: Yes - My Orders Last 24 Hours: My Active Orders 06/26/20 18:33 Alum Hydrox/Mag Hydrox/Simeth [Mag-Al Plus] 30 ml PO Q4H PRN 06/27/20 06:00 Pantoprazole [ProTONIX] 40 mg PO ACBREAKFAST 06/27/20 06:35 PROCALCITONIN [REF] DAILY 06/27/20 11:28 Dextrose 50% in Water 50 ml IV ASDIRECTED PRN Glucagon,Human Recombinant [GlucaGen] 1 mg IM ASDIRECTED PRN 06/27/20 21:00 Insulin Glarg,Human.Rec.Analog [LantUS] 12 unit SUBCUT BEDTIME - Plan Plan:: #. Acute hypoxemic respiratory failure This is secondary to COVID-19 pneumonia #. Chronic kidney disease Serum creatinine is at 1.5 #. Coronary artery disease Status post previous coronary stent placement #. COVID-19 pneumonia Procalcitonin level is elevated. #. Hiccups Try patient on chlorpromazine for symptomatic management #. Hyperglycemia Patient is not a known diabetic Likely because of steroid therapy Plan: Start patient on insulin Lantus Monitor blood sugars Try to wean down oxygen as tolerated Encourage increased ambulation Patient may be able to discharge in the next 24 hours.
[2020-06-27] MEDS: Dexamethasone 4 MG/ML SDV IVPUSH SCH (20:33)
[2020-06-27] MEDS: cefTRIAXone 1 GM in Sodium Chloride 0.9% 50 ML IV SCH (20:39)
[2020-06-27] MEDS: Enoxaparin 40 MG/0.4 ML Syringe SUBCUT SCH (20:45)
[2020-06-27] MEDS ORDERED: Insulin Glarg,Human.Rec.Analog 100 Unit/ML SUBCUT SCH (21:00)
[2020-06-27] MEDS: Azithromycin 500 MG in Sodium Chloride 0.9% 250 ML IV SCH (21:30)
[2020-06-28] MEDS: Pantoprazole 40 MG Tab.CR PO SCH (05:25)
[2020-06-28] MEDS: Aspirin 81 MG Tab.Chew PO SCH (08:34)
[2020-06-28] MEDS: Mometasone Furoate Powder 220 MCG/Puff 14 Dose Inhaler INH SCH (08:34)
[2020-06-28] MEDS: amLODIPine 5 MG Tab PO SCH (08:35)
[2020-06-28 08:38] VITALS: BP 117/67
[2020-06-28] MEDS: Albuterol 6.7 GM Inhaler INH SCH ×2 (08:38→13:13)
[2020-06-28] MEDS: LORazepam 1 MG Tab PO SCH (08:38)
[2020-06-28] MEDS: Acetaminophen 325 MG Tab PO PRN (08:49)
--- NOTE | 2020-06-28 10:33 | PCM.DCSUM1 ---
Discharge Summary - Hospital Course Free Text/Narrative:: Is a 54-year-old man with medical history of coronary artery disease, hypertension, chronic kidney disease, anxiety disorder. The patient was admitted with complaint of shortness of breath and was found to have hypoxia. This is secondary to COVID-19 pneumonia. He was started on intravenous dexamethasone, remdesivir and also received 2 units of convalescent plasma. Patient was placed on antibacterial medications. He feels better he will be discharged home. Patient continues to require supplemental oxygen 2 to 4 L/min. We will make arrangements for that. #. Acute hypoxemic respiratory failure This is secondary to COVID-19 pneumonia #. Chronic kidney disease Serum creatinine is at 1.5 #. Coronary artery disease Status post previous coronary stent placement #. COVID-19 pneumonia Procalcitonin level is elevated. #. Hiccups Try patient on chlorpromazine for symptomatic management #. Hyperglycemia Patient is not a known diabetic Likely because of steroid therapy Diagnosis: Stroke: No - Discharge Data Discharge Date: 06/28/20 Discharge Disposition: Home, Self-Care 01 Condition: Good - Referral to Home Health Primary Care Physician: Elena Pinto MD - Patient Instructions Other/Special Instructions: F/up with PMD in one week - Discharge Plan *PRESCRIPTION DRUG MONITORING PROGRAM REVIEWED*: No *COPY OF PRESCRIPTION DRUG MONITORING REPORT IN PATIENT SULY: No Prescriptions/Med Rec: Azithromycin 500 mg PO DAILY 4 Days #4 tablet dexAMETHasone [Decadron] 6 mg PO DAILY 5 Days #5 Cefdinir [Omnicef] 300 mg PO BID 4 Days #8 cap Home Medications: Home Meds Lisinopril 20 mg PO DAILY 12/05/16 [History] LORazepam 0.5 mg PO BID 02/18/17 [History] Losartan [Cozaar] 50 mg PO DAILY 02/18/17 [History] Aspirin 81 mg PO DAILY 06/22/20 [History] Ondansetron [Zofran ODT] 4 mg PO Q6H PRN 06/22/20 [History] amLODIPine [Norvasc] 10 mg PO DAILY 06/22/20 [History] Azithromycin 500 mg PO DAILY 4 Days #4 tablet 06/28/20 [Rx] Cefdinir [Omnicef] 300 mg PO BID 4 Days #8 cap 06/28/20 [Rx] dexAMETHasone [Decadron] 6 mg PO DAILY 5 Days #5 06/28/20 [Rx] Referrals: Elena Pinto MD [Primary Care Provider] - - Discharge Summary/Plan Comment DC Time >30 min.: No - Patient Data Vitals - Most Recent: Last Vital Signs Temp 36.7 C 06/28/20 08:38 Pulse 67 06/28/20 08:38 Resp 20 06/28/20 08:38 BP 117/67 06/28/20 08:38 Pulse Ox 93 L 06/28/20 08:38 Weight - Most Recent: 95.254 kg I&O - Last 24 hours: Intake & Output 06/27/20 06/28/20 06/28/20 22:59 06:59 14:59 Intake Total 1397 200 640 Output Total 350 280 175 Balance 1047 -80 465 Lab Results - Last 24 hrs: Laboratory Results - last 24 hr 06/27/20 06/27/20 Range/Units 06:35 21:42 POC Glucose 248 H (70-105) mg/dl Procalcitonin 0.12 H ng/mL [facility]CO Results - Last 24 hrs: Microbiology 06/22/20 16:02 Aerobic Blood Culture - Final Blood - Arm, Right NO GROWTH AFTER 5 DAYS Anaerobic Blood Culture - Final NO GROWTH AFTER 5 DAYS 06/22/20 15:59 Aerobic Blood Culture - Final Blood - Arm, Left NO GROWTH AFTER 5 DAYS Anaerobic Blood Culture - Final NO GROWTH AFTER 5 DAYS Med Orders - Current: Current Medications Acetaminophen (Tylenol) 650 mg PO Q4H PRN PRN Reason: Pain (Mild 1-3)/fever Last Admin: 06/28/20 08:49 Dose: 650 mg Documented by: Al Hydroxide/Mg Hydroxide (Mag-Al Plus) 30 ml PO Q4H PRN PRN Reason: Heartburn Albuterol (Proventil Hfa) 1 - 2 gm INH QID [facility] Last Admin: 06/28/20 08:38 Dose: 2 puff Documented by: Amlodipine Besylate (Norvasc) 10 mg PO DAILY [facility] Last Admin: 06/28/20 08:35 Dose: 10 mg Documented by: Aspirin (Aspirin) 81 mg PO DAILY [facility] Last Admin: 06/28/20 08:34 Dose: 81 mg Documented by: Benzonatate (Tessalon Perles) 100 mg PO TID PRN PRN Reason: Cough Last Admin: 06/25/20 15:43 Dose: 100 mg Documented by: Dexamethasone (Decadron) 6 mg IVPUSH DAILY@1999 [facility] Stop: 07/01/20 20:01 Last Admin: 06/27/20 20:33 Dose: 6 mg Documented by: Dextrose/Water (Dextrose 50% In Water) 50 ml IV ASDIRECTED PRN PRN Reason: Hypoglycemia Docusate Sodium (Colace) 100 mg PO BID PRN PRN Reason: Constipation Enoxaparin Sodium (Lovenox) 40 mg SUBCUT BEDTIME [facility] Last Admin: 06/27/20 20:45 Dose: 40 mg Documented by: Glucagon (Glucagen) 1 mg IM ASDIRECTED PRN PRN Reason: Hypoglycemia Ceftriaxone Sodium 1 gm/ (Sodium Chloride) 50 mls @ 100 mls/hr IV Q24H [facility] Last Infusion: 06/27/20 21:28 Dose: Infused Documented by: Azithromycin 500 mg/ Sodium (Chloride) 250 mls @ 250 mls/hr IV Q24H [facility] Last Infusion: 06/27/20 22:43 Dose: Infused Documented by: Insulin Glargine (Lantus) 12 unit SUBCUT BEDTIME [facility] Last Admin: 06/27/20 21:42 Dose: 12 units Documented by: Lorazepam (Ativan) 1 mg PO BID [facility] Last Admin: 06/28/20 08:38 Dose: 1 mg Documented by: Losartan Potassium (Cozaar) 50 mg PO DAILY [facility] Last Admin: 06/27/20 10:17 Dose: Not Given Documented by: Mometasone Furoate (Asmanex 220 Mcg) 2 puff INH BIDRT [facility] Last Admin: 06/28/20 08:34 Dose: 2 puff Documented by: Ondansetron HCl (Zofran Odt) 4 mg PO Q4H PRN PRN Reason: nausea, able to take PO Last Admin: 06/23/20 10:51 Dose: 4 mg Documented by: Oxycodone HCl (Oxycodone) 5 mg PO Q4H PRN PRN Reason: Pain (moderate 4-6) Last Admin: 06/25/20 06:07 Dose: 5 mg Documented by: Pantoprazole Sodium (Protonix) 40 mg PO ACBREAKFAST [facility] Last Admin: 06/28/20 05:25 Dose: 40 mg Documented by: Sodium Chloride (Saline Flush) 10 ml FLUSH ASDIRECTED PRN PRN Reason: IV Use Last Admin: 06/27/20 22:46 Dose: 10 ml Documented by: Discontinued Medications Sodium Chloride (Normal Saline) 1,000 mls @ 75 mls/hr IV ASDIRECTED [facility] Last Infusion: 06/23/20 10:37 Dose: 75 mls/hr Documented by: Remdesivir 200 mg/ Sodium (Chloride) 210 mls @ 210 mls/hr IV ONETIME ONE Stop: 06/22/20 20:59 Last Infusion: 06/22/20 22:28 Dose: Infused Documented by: Remdesivir 100 mg/ Sodium (Chloride) 100 mls @ 100 mls/hr IV Q24H [facility] Stop: 06/26/20 20:59 Last Infusion: 06/26/20 23:06 Dose: Infused Documented by: Sterile Water (Sterile Water For Injection) Confirm Administered Dose 40 mls @ as directed .ROUTE .STK-MED ONE Stop: 06/22/20 20:35 Last Admin: 06/22/20 21:25 Dose: 210 mls/hr Documented by: Lisinopril (Prinivil) 20 mg PO DAILY [facility] Last Admin: 06/23/20 08:00 Dose: 20 mg Documented by: Lorazepam (Ativan) 0.5 mg PO BID [facility] Last Admin: 06/24/20 08:44 Dose: 0.5 mg Documented by: Lorazepam (Ativan) 1 mg PO ONETIME ONE Stop: 06/23/20 20:18 Last Admin: 06/23/20 21:02 Dose: 1 mg Documented by:
[2020-06-28 11:40] VITALS: PULSE 65
[2020-06-28] MEDS ORDERED: FLU Vacc QS2020-21 36MOS UP/PF 60 MCG/0.5 ML Syringe IM ONE (13:00)
== END 2020-06-28 16:22 | disposition home or self-care (01) | DRG 177 ==
LOC: DL.ED 14:44 → DL.MS 18:13 → OBSVTOIN 18:13
PROVIDERS: ADMIT Internal Medicine; ATTEND Hospitalist
PROC: 8E0ZXY6 Isolation (ICD-10-PCS; principal; 2020-06-22)
PROC: XW033E5 Introduction of Remdesivir Anti-infective into Peripheral Vein, Percutaneous Approach, New Technology Group 5 (ICD-10-PCS; 2020-06-22)
PROC: XW13325 Transfusion of Convalescent Plasma (Nonautologous) into Peripheral Vein, Percutaneous Approach, New Technology Group 5 (ICD-10-PCS; 2020-06-24)
DX: U07.1 COVID-19 (principal); J12.89 Other viral pneumonia; J96.01 Acute respiratory failure with hypoxia; I25.10 Atherosclerotic heart disease of native coronary artery without angina pectoris; R06.6 Hiccough; R73.9 Hyperglycemia, unspecified; T38.0X5A Adverse effect of glucocorticoids and synthetic analogues, initial encounter; I12.9 Hypertensive chronic kidney disease with stage 1 through stage 4 chronic kidney disease, or unspecified chronic kidney disease; N18.30 Chronic kidney disease, stage 3 unspecified; F41.9 Anxiety disorder, unspecified; Z95.5 Presence of coronary angioplasty implant and graft; Z79.899 Other long term (current) drug therapy
CPT/HCPCS: 36415; 36430; 71250; 80048; 80053; 80076; 82248; 82962; 83615; 83880; 84132; 84145; 84484; 85025; 85027; 85379; 86140; 86900; 86901; 87040; 90686; 93005; 94010; 94660; 94762; 99284; 99285-25; A9270-GY; G0008; J0456; J0696; J1100; J1650; J1815-GY; J7030; J7050; P9017

== ENCOUNTER 2021-05-14 16:38 | Emergency (ER) | payer MEDICAID ==
[2021-05-14] MEDS ORDERED: Sodium Chloride 0.9% 10 ML Syringe FLUSH PRN (17:05)
[2021-05-14] MEDS ORDERED: Sodium Chloride 0.9% 1,000 ML IV ONE (17:19)
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
--- NOTE | 2021-05-14 17:35 | CR ---
PROCEDURE INFORMATION: Exam: XR Chest Exam date and time: 05/14/2021 5:18 PM Age: 55 years old Clinical indication: Pain; Shortness of breath; Left-sided; Additional info: SOB cp TECHNIQUE: Imaging protocol: XR of the chest. Views: 1 view. COMPARISON: CT Chest wo Cont 06/22/2020 5:17 PM FINDINGS: Lungs: See "Pleural spaces" finding. Pleural spaces: Right ribcage deformity with pleural thickening likely postsurgical or posttraumatic. Healed left upper lobe rib fractures. Heart/Mediastinum: Unremarkable. No cardiomegaly. Bones/joints: See "Pleural spaces" finding. IMPRESSION: No acute/active cardiopulmonary findings
[2021-05-14 17:47] LABS: CHLORIDE,CL 107 mmol/L (98-107); SODIUM,NA 143 mmol/L (136-145)
[2021-05-14 18:01] LABS: AMPHETAMINES,URINE POSITIVE (NEGATIVE); BARBITURATES,URINE NEGATIVE (NEGATIVE); BENZODIAZEPINE,URINE NEGATIVE (NEGATIVE); MDMA (ECSTASY), URINE NEGATIVE (NEGATIVE); METHADONE,URINE NEGATIVE (NEGATIVE); METHAMPHETAMINES,URINE POSITIVE (NEGATIVE); OPIATES,URINE NEGATIVE (NEGATIVE); OXYCODONE,URINE NEGATIVE (NEGATIVE); PHENCYCLIDINE,URINE NEGATIVE (NEGATIVE); TCA,URINE NEGATIVE (NEGATIVE)
--- NOTE | 2021-05-14 19:03 | CR ---
PROCEDURE INFORMATION: Exam: XR Abdomen Exam date and time: 05/14/2021 6:45 PM Age: 55 years old Clinical indication: Abdominal pain; Generalized; Additional info: CVA tenderness L TECHNIQUE: Imaging protocol: XR of the abdomen. Views: Frontal supine view of the abdomen. 1 View. COMPARISON: CT Abdomen Pelvis w wo Cont 03/03/2021 9:38 AM FINDINGS: Gastrointestinal tract: Normal. No bowel dilation. Bones/joints: Unremarkable. IMPRESSION: No acute findings.
[2021-05-14 19:23] VITALS: BP 187/104; PULSE 72
== END 2021-05-14 19:15 | disposition home or self-care (01) ==
LOC: DL.ED 16:38
DX: M94.0 Chondrocostal junction syndrome [Tietze] (principal); I25.2 Old myocardial infarction; I12.9 Hypertensive chronic kidney disease with stage 1 through stage 4 chronic kidney disease, or unspecified chronic kidney disease; N18.30 Chronic kidney disease, stage 3 unspecified; Z79.899 Other long term (current) drug therapy; Z79.82 Long term (current) use of aspirin; Z95.5 Presence of coronary angioplasty implant and graft
CPT/HCPCS: 36415; 71045; 74018; 80053; 80305; 80307; 81001; 82150; 83605; 83690; 83735; 83880; 84443; 84484; 85025; 86140; 93005; 99285; J7030

== ENCOUNTER 2021-07-23 19:15 | Emergency (ER) | payer MEDICAID ==
[2021-07-23] MEDS ORDERED: Iopamidol 612 MG/ML 100 ML Bottle IV ONE (19:16)
[2021-07-23] MEDS ORDERED: Ondansetron 4 MG/2 ML SDV IVPUSH ONE ×2 (19:23→21:21)
[2021-07-23] MEDS ORDERED: fentaNYL 100 MCG/2 ML SDV IVPUSH ONE ×3 (19:24→21:01)
[2021-07-23] MEDS ORDERED: Ondansetron 4 MG/2 ML SDV ONE (19:24)
[2021-07-23 19:41] VITALS: BP 143/95; PULSE 68
[2021-07-23 20:33] LABS: ANION GAP 14.4 mEq/L (7-13); CHLORIDE,CL 104 mmol/L (98-107); SODIUM,NA 142 mmol/L (136-145)
[2021-07-23 21:07] LABS: AMPHETAMINES,URINE NEGATIVE (NEGATIVE); BARBITURATES,URINE NEGATIVE (NEGATIVE); BENZODIAZEPINE,URINE NEGATIVE (NEGATIVE); MDMA (ECSTASY), URINE NEGATIVE (NEGATIVE); METHADONE,URINE NEGATIVE (NEGATIVE); METHAMPHETAMINES,URINE POSITIVE (NEGATIVE); OPIATES,URINE NEGATIVE (NEGATIVE); OXYCODONE,URINE NEGATIVE (NEGATIVE); PHENCYCLIDINE,URINE NEGATIVE (NEGATIVE); TCA,URINE NEGATIVE (NEGATIVE)
== END 2021-07-23 21:45 ==
LOC: DL.ED 19:15
DX: S22.42XA Multiple fractures of ribs, left side, initial encounter for closed fracture (principal); S22.069A Unspecified fracture of T7-T8 vertebra, initial encounter for closed fracture; S32.039A Unspecified fracture of third lumbar vertebra, initial encounter for closed fracture; S42.109A Fracture of unspecified part of scapula, unspecified shoulder, initial encounter for closed fracture; R41.0 Disorientation, unspecified; I10 Essential (primary) hypertension; Z79.82 Long term (current) use of aspirin; Z79.899 Other long term (current) drug therapy; V86.52XA Driver of snowmobile injured in nontraffic accident, initial encounter
CPT/HCPCS: 36415; 70450; 71260; 72125; 72128; 72131; 74177; 80053; 80305; 80307; 81001; 82150; 83690; 85025; 85610; 96374; 96375; 96376; 99285; J2405; J3010

== ENCOUNTER 2023-02-13 21:35 | Emergency (ER) | payer BC, MEDICAID ==
[2023-02-13 22:05] LABS: BASOPHILS PERCENT AUTO 0.7 % (0.0-1.0); EOSINOPHILS PERCENT AUTO 1.1 % (1.0-3.0); HEMATOCRIT 40.2 % (40.0-54.0); HEMOGLOBIN 14.2 g/dL (14.0-18.0); MEAN CORPUSCULAR HEMOGLOBIN 41.3 pg (27.0-34.0); MEAN CORPUSCULAR HGB CONC 35.3 g/dL (33.0-35.0); MEAN CORPUSCULAR VOLUME 116.9 fL (80-100); MONOCYTES PERCENT AUTO 9.8 % (2-8); NEUTROPHILS PERCENT AUTO 66.4 % (42.2-75.2); PLATELET COUNT,PLT 234 10^3/uL (150-450); RED BLOOD CELL COUNT 3.44 10^6/uL (4.6-6.2); WHITE BLOOD CELL COUNT,WBC 7.4 10^3/uL (5.0-10.0)
[2023-02-13 22:21] LABS: APPEARANCE,URINE CLEAR (CLEAR); BILIRUBIN,URINE NEGATIVE (NEGATIVE); COLOR,URINE YELLOW (YELLOW); GLUCOSE,URINE NEGATIVE (NEGATIVE); KETONES,URINE NEGATIVE (NEGATIVE); LEUKOCYTE ESTERASE,URINE NEGATIVE (NEGATIVE); NITRITE,URINE NEGATIVE (NEGATIVE); OCCULT BLOOD,URINE NEGATIVE (NEGATIVE); PROTEIN,URINE 30 (NEGATIVE)
[2023-02-13 22:26] LABS: A/G RATIO 1.1; ALBUMIN 3.9 g/dL (3.4-5.0); ANION GAP 10.3 mEq/L (7-13); BILIRUBIN TOTAL 0.7 mg/dL (0.2-1.0); BUN/CREATININE RATIO 19.9 (No establ ref range); CALCIUM 8.8 mg/dL (8.5-10.1); CREATININE 1.51 mg/dL (0.70-1.30); EST CRCL DRUG DOSING (CG) 55.73 mL/min; POTASSIUM,K 4.3 mmol/L (3.5-5.1); PROTEIN TOTAL,TP 7.4 g/dL (6.4-8.2)
[2023-02-13 22:30] LABS: BACTERIA,URINE RARE /HPF (0-FEW/HPF); EPITHELIAL CELLS,URINE RARE /HPF (NOT SEEN); RBC,URINE 0-5 /HPF (0-5); WBC,URINE 0-5 /HPF (0-5/HPF)
[2023-02-13] MEDS: cloNIDine 0.1 MG Tab PO ONE (23:23)
[2023-02-14 00:07] VITALS: BP 144/78; PULSE 66
== END 2023-02-14 00:04 | disposition home or self-care (01) ==
LOC: DL.ED 21:35
DX: I15.9 Secondary hypertension, unspecified (principal); I12.9 Hypertensive chronic kidney disease with stage 1 through stage 4 chronic kidney disease, or unspecified chronic kidney disease; N18.9 Chronic kidney disease, unspecified; Z79.82 Long term (current) use of aspirin; Z79.899 Other long term (current) drug therapy
CPT/HCPCS: 36415; 70450; 80053; 81001; 84484; 85025; 93005; 93010; 99284; A9270-GY

== ENCOUNTER 2024-01-17 16:17 | Emergency (ER) | payer MEDICAID, MEDICARE ==
[2024-01-17] MEDS: Morphine 2 MG/ML SYRINGE IVPUSH ONE ×3 (16:39→19:00)
[2024-01-17 16:41] LABS: BASOPHILS PERCENT AUTO 1.2 % (0.0-1.0); EOSINOPHILS PERCENT AUTO 1.9 % (1.0-3.0); HEMATOCRIT 45.8 % (40.0-54.0); HEMOGLOBIN 16.3 g/dL (14.0-18.0); LYMPHOCYTES PERCENT AUTO 17.1 % (20.5-50.1); MEAN CORPUSCULAR HGB CONC 35.6 g/dL (33.0-35.0); MEAN CORPUSCULAR VOLUME 112.5 fL (80-100); MONOCYTES PERCENT AUTO 9.8 % (2-8); PLATELET COUNT,PLT 242 10^3/uL (150-450); RED BLOOD CELL COUNT 4.07 10^6/uL (4.6-6.2); WHITE BLOOD CELL COUNT,WBC 7.6 10^3/uL (5.0-10.0)
[2024-01-17] MEDS: Ondansetron 4 MG/2 ML SDV IVPUSH ONE (17:00)
[2024-01-17 17:06] LABS: A/G RATIO 1.1; ALANINE AMINOTRANSFERASE,ALT 27 U/L (16-63); ALBUMIN 3.6 g/dL (3.4-5.0); ALKALINE PHOSPHATASE 95 U/L (46-116); ANION GAP 13.6 mEq/L (7-13); ASPARTATE AMNIOTRANSFERASE,AST 14 U/L (15-37); BILIRUBIN TOTAL 0.6 mg/dL (0.2-1.0); BLOOD UREA NITROGEN,BUN 23 mg/dL (7-18); BUN/CREATININE RATIO 16.3 (No establ ref range); C-REACTIVE PROTEIN 0.65 ng/dL (<=0.50); CALCIUM 9.1 mg/dL (8.5-10.1); CARBON DIOXIDE,CO2 26 mmol/L (21-32); CHLORIDE,CL 106 mmol/L (98-107); CREATININE 1.41 mg/dL (0.70-1.30); EST CRCL DRUG DOSING (CG) 57.11 mL/min; GLUCOSE RANDOM 110 mg/dL (70-99); LACTIC ACID 1.1 mmol/L (0.4-2.0); POTASSIUM,K 4.6 mmol/L (3.5-5.1); PTT,PARTIAL THROMBOPLSTIN TIME 25.7 SEC (22.0-34.0); SODIUM,NA 141 mmol/L (136-145)
[2024-01-17 17:08] LABS: ESTIMATED GFR 58 mL/min (>=60); ETHANOL BLOOD MEDICAL < 3 mg/dL (0)
[2024-01-17] MEDS: Folic Acid 50 MG/10 ML MDV ONE (18:04)
[2024-01-17 18:24] LABS: APPEARANCE,URINE CLEAR (CLEAR); BILIRUBIN,URINE NEGATIVE (NEGATIVE); COLOR,URINE YELLOW (YELLOW); GLUCOSE,URINE NEGATIVE (NEGATIVE); KETONES,URINE NEGATIVE (NEGATIVE); LEUKOCYTE ESTERASE,URINE NEGATIVE (NEGATIVE); NITRITE,URINE NEGATIVE (NEGATIVE); OCCULT BLOOD,URINE NEGATIVE (NEGATIVE); PROTEIN,URINE NEGATIVE (NEGATIVE); UROBILINOGEN,URINE 0.2 mg/dL (0.2-1.0)
[2024-01-17 18:27] LABS: METHAMPHETAMINES,URINE NEGATIVE (NEGATIVE)
[2024-01-17 18:28] LABS: AMPHETAMINES,URINE NEGATIVE (NEGATIVE); BARBITURATES,URINE NEGATIVE (NEGATIVE); BENZODIAZEPINE,URINE NEGATIVE (NEGATIVE); MDMA (ECSTASY), URINE NEGATIVE (NEGATIVE); METHADONE,URINE NEGATIVE (NEGATIVE); OPIATES,URINE POSITIVE (NEGATIVE); OXYCODONE,URINE NEGATIVE (NEGATIVE); PHENCYCLIDINE,URINE NEGATIVE (NEGATIVE); TCA,URINE NEGATIVE (NEGATIVE)
[2024-01-17] MEDS: Iopamidol 612 MG/ML 100 ML Bottle IVPUSH ONE (18:35)
[2024-01-17] MEDS: Sodium Chloride 0.9% 1,000 ML IV ONE (20:20)
[2024-01-17] MEDS: Dexamethasone 4 MG/ML SDV IV ONE (20:21)
[2024-01-17 20:52] VITALS: BP 162/101; PULSE 62
[2024-01-17] MEDS: Take Home: Acetaminophen/HYDROcodone 325-5 MG, 5 Tab Pack PO ONE (21:23)
== END 2024-01-17 21:37 | disposition home or self-care (01) ==
LOC: DL.ED 16:17
DX: S22.42XA Multiple fractures of ribs, left side, initial encounter for closed fracture (principal); S22.000A Wedge compression fracture of unspecified thoracic vertebra, initial encounter for closed fracture; S32.000A Wedge compression fracture of unspecified lumbar vertebra, initial encounter for closed fracture; K80.20 Calculus of gallbladder without cholecystitis without obstruction; K59.09 Other constipation; I10 Essential (primary) hypertension; I25.2 Old myocardial infarction; Z95.5 Presence of coronary angioplasty implant and graft; Z79.82 Long term (current) use of aspirin; Z79.899 Other long term (current) drug therapy; V18.0XXA Pedal cycle driver injured in noncollision transport accident in nontraffic accident, initial encounter
CPT/HCPCS: 36415; 70450; 71045; 71101-RT; 71250; 72125; 74177; 80053; 80305-QW; 80307; 81003; 83605; 84484; 85025; 85379; 85610; 85730; 86140; 93005; 93010; 94010; 96361; 96374; 96375; 96376; 99284; 99285-25; A9270-GY; J1100; J2270; J2405; J7030; Q9967

== ENCOUNTER 2024-02-23 08:07 | Emergency (ER) | payer MEDICAID, MEDICARE ==
[2024-02-23 08:37] VITALS: BP 132/94; PULSE 84
[2024-02-23] MEDS: Dexamethasone 4 MG/ML SDV PO ONE (09:00)
[2024-02-23] MEDS: diphenhydrAMINE 50 MG Cap PO ONE (09:00)
[2024-02-23] MEDS: Famotidine 20 MG Tab PO ONE (09:00)
[2024-02-23] MEDS: Sodium Chloride 0.9% 1,000 ML IV ONE (10:03)
[2024-02-23 10:10] LABS: BASOPHILS PERCENT AUTO 0.2 % (0.0-1.0); EOSINOPHILS PERCENT AUTO 0.2 % (1.0-3.0); HEMATOCRIT 46.1 % (40.0-54.0); HEMOGLOBIN 16.9 g/dL (14.0-18.0); LYMPHOCYTES PERCENT AUTO 6.2 % (20.5-50.1); MEAN CORPUSCULAR HEMOGLOBIN 39.6 pg (27.0-34.0); MEAN CORPUSCULAR HGB CONC 36.7 g/dL (33.0-35.0); MONOCYTES PERCENT AUTO 5.8 % (2-8); NEUTROPHILS PERCENT AUTO 87.6 % (42.2-75.2); PLATELET COUNT,PLT 372 10^3/uL (150-450); RED BLOOD CELL COUNT 4.27 10^6/uL (4.6-6.2); WHITE BLOOD CELL COUNT,WBC 16.5 10^3/uL (5.0-10.0)
[2024-02-23] MEDS: Albuterol/Ipratropium 3.0-0.5 MG/3 ML Neb Soln NEB ONE (10:11)
[2024-02-23 10:26] LABS: A/G RATIO 1.2; ALBUMIN 3.7 g/dL (3.4-5.0); ANION GAP 14.6 mEq/L (7-13); BILIRUBIN TOTAL 1.1 mg/dL (0.2-1.0); BUN/CREATININE RATIO 19.3 (No establ ref range); CALCIUM 9.3 mg/dL (8.5-10.1); CREATININE 1.66 mg/dL (0.70-1.30); EST CRCL DRUG DOSING (CG) 50.08 mL/min; MAGNESIUM 1.7 mg/dL (1.8-2.4); POTASSIUM,K 4.6 mmol/L (3.5-5.1); PROTEIN TOTAL,TP 6.9 g/dL (6.4-8.2)
[2024-02-23] MEDS: Iopamidol 755 Mg/ML 100 ML Bottle IVPUSH ONE (11:24)
== END 2024-02-23 12:25 | disposition home or self-care (01) ==
LOC: DL.ED 08:07
DX: L51.9 Erythema multiforme, unspecified (principal); J98.4 Other disorders of lung; S22.42XA Multiple fractures of ribs, left side, initial encounter for closed fracture; I10 Essential (primary) hypertension; I25.2 Old myocardial infarction; Z79.82 Long term (current) use of aspirin; Z79.899 Other long term (current) drug therapy; Z95.5 Presence of coronary angioplasty implant and graft; X58.XXXA Exposure to other specified factors, initial encounter
CPT/HCPCS: 36415; 71045; 71275; 80053; 83735; 84484; 85025; 85379; 87635; 93005; 93010; 94640; 96360; 99284; 99285; A9270; J7030; J8540; Q0163; Q9967; J7620-GY; U0002